=== PATIENT | female | born 2000 | race Caucasian/White ===

== ENCOUNTER 2022-09-05 23:20 | Emergency (ER) | payer MEDICAID ==
[~2022-09-05] VITALS: Ht 157.5 cm; Wt 54.4 kg
[2022-09-05 23:25] VITALS: BP 101/79; PULSE 101; RESP 10; TEMP 98.9; O2SAT 99
[2022-09-05] MEDS ORDERED: LORazepam 1 MG TAB PO ONE (23:40)
--- NOTE | 2022-09-05 23:50 | NUR ---
pt reports she just took hydroxyzine 25mg 1/2 tab 10pm today. pt ask to take that ativan 1mg later. health education provided. dr. ballesteros made aware. dr. ballesteros verbalized understanding and agreed to give the ativan later.
--- NOTE | 2022-09-05 23:54 | NUR ---
PT ON BEDSIDE [employer]. HOB ELEVATED RESP EVEN AND UNLABORED
--- NOTE | 2022-09-06 00:58 | NUR ---
mother at bedside
--- NOTE | 2022-09-06 01:00 | NUR ---
pt states that she will take the medicine prescribed by the ERMD
--- NOTE | 2022-09-06 01:55 | NUR ---
ERMD AT BEDSIDE TALKING TO MOTHER AND THE PT.
[2022-09-06 02:05] VITALS: BP 101/60; PULSE 80; RESP 10; TEMP 98.9; O2SAT 99
--- NOTE | 2022-09-06 02:05 | NUR ---
Patient discharged with v/s stable. Written and verbal after care instructions given and explained. Patient verbalized understanding. Ambulatory with steady gait. All questions addressed prior to discharge. Advised to follow up with PMD.
== END 2022-09-06 02:05 | disposition home or self-care (01) ==
LOC: MED 23:20
DX: R06.4 Hyperventilation (principal); F41.9 Anxiety disorder, unspecified; Z88.8 Allergy status to other drugs, medicaments and biological substances; Z79.899 Other long term (current) drug therapy
CPT/HCPCS: 99283